=== PATIENT | female | born 1950 | race Caucasian/White ===

== ENCOUNTER 2023-04-29 10:10 | Emergency (ER) | payer MEDICARE ==
[~2023-04-29] VITALS: Ht 157.5 cm; Wt 56.7 kg
[2023-04-29 10:15] VITALS: BP_SYST 128; PULSE 86; RESP 18; TEMP 98.2; O2SAT 92
[2023-04-29 11:17] LABS: BASOPHILS % (AUTO) 0.2 % (0.0-2.0); HEMATOCRIT 38.7 % (36-48); HEMOGLOBIN 12.6 g/dL (12.0-16.0); LYMPHOCYTES # (AUTO) 1.4 K/uL (1.0-5.5); LYMPHOCYTES % (AUTO) 20.8 % (20.5-51.5); MEAN CORPUSCULAR HEMOGLOBIN 30 pg (27-31); MEAN CORPUSCULAR HGB CONC 33 % (32-36); MEAN CORPUSCULAR VOLUME 93 fL (79.0-98.0); MONOCYTES # (AUTO) 0.6 K/uL (0.0-1.0); MONOCYTES % (AUTO) 9.4 % (1.7-9.3); NEUTROPHILS # (AUTO) 4.5 K/uL (1.8-7.7); NEUTROPHILS % (AUTO) 69.6 % (40.0-70.0); PLATELET COUNT (AUTO) 141 K/uL (130-430); RED BLOOD CELL COUNT(AUTO) 4.18 MIL/uL (4.2-6.2); RED CELL DISTRIBUTION WIDTH 13.6 % (9.0-15.0); WHITE BLOOD COUNT (AUTO) 6.5 K/uL (4.8-10.8)
[2023-04-29 11:25] LABS: ANION GAP 11 (5-15); CALCIUM 8.5 mg/dL (8.4-11.0); CARBON DIOXIDE 25 mmol/L (23-29); CHLORIDE 106 mmol/L (98-107); CREATININE 0.53 mg/dL (0.55-1.30); GLUCOSE 102 mg/dL (74-106); POTASSIUM 3.5 mmol/L (3.5-5.1); SODIUM SERUM 142 mmol/L (136-145); UREA NITROGEN, BLOOD 16 mg/dL (8-21)
[2023-04-29 11:26] LABS: INFLUENZA TYPE A negative (NEGATIVE); INFLUENZA TYPE B NEGATIVE (NEGATIVE)
[2023-04-29 11:30] LABS: ALBUMIN 3.3 g/dL (3.4-4.8); ASPARTATE AMINOTRANSFERASE 31 U/L (10-37); TOTAL BILIRUBIN 0.5 mg/dL (0.0-1.0); TOTAL PROTEIN, SERUM 6.8 g/dL (6.4-8.3)
[2023-04-29 11:37] LABS: ACETONE, SERUM NEGATIVE (NEGATIVE)
[2023-04-29] MEDS ORDERED: DEXAMETHASONE SOD PHOSPHATE 4 MG/ML VIAL IVP ONE (11:45)
[2023-04-29] MEDS ORDERED: ALBUTEROL SULFATE 0.083% 2.5 MG/3 ML VIAL.NEB INH ONE (11:45)
[2023-04-29] MEDS ORDERED: IPRATROPIUM BROM 0.5 MG/2.5 ML VIAL.NEB (ATROVENT) INH ONE (11:45)
[2023-04-29 11:47] LABS: ALANINE AMINOTRANSFERASE 23 U/L (12-78)
[2023-04-29] MEDS ORDERED: LEVE1000 PO (11:51)
[2023-04-29] MEDS ORDERED: LIP80 PO (11:51)
[2023-04-29] MEDS ORDERED: SERT-436 PO (11:51)
[2023-04-29] MEDS ORDERED: CHOL4PAC20 PO (11:51)
[2023-04-29] MEDS ORDERED: NEU300 PO (11:51)
[2023-04-29] MEDS ORDERED: TYC3 PO (11:54)
[2023-04-29 16:28] VITALS: BP_SYST 135; PULSE 74; RESP 18; TEMP 97.3; O2SAT 97
== END 2023-04-29 14:00 | disposition short-term general hospital (02) ==
LOC: SED 10:10
DX: U07.1 COVID-19 (principal); J40 Bronchitis, not specified as acute or chronic; R09.02 Hypoxemia; Z79.899 Other long term (current) drug therapy
CPT/HCPCS: 80053; 82009; 83880; 85025; 87040; 36415; 93005; 71045; 94640; 94760; 99285; 96374; 83605; 87804 ×2; 87426; J1100; J7613

== ENCOUNTER 2023-06-16 14:42 | Emergency (ER) | payer MEDICARE ==
[~2023-06-16] VITALS: Ht 165.1 cm; Wt 68.0 kg
[~2023-06-16 14:42] MED LIST: CHOL4PAC20 PO; LEVE1000 PO; LIP80 PO; NEU300 PO; SERT-436 PO; TYC3 PO
[2023-06-16 14:50] VITALS: BP_SYST 106; PULSE 97; RESP 19; TEMP 97.6; O2SAT 96
[2023-06-16] MEDS ORDERED: LEVE1000 PO (15:08)
[2023-06-16] MEDS ORDERED: ATOR-1 PO (15:08)
[2023-06-16] MEDS ORDERED: GABA600T PO (15:08)
[2023-06-16] MEDS ORDERED: SERT-131 PO (15:08)
[2023-06-16] MEDS ORDERED: CHOL4PAC20 PO (15:08)
[2023-06-16] MEDS ORDERED: ACET1TAB93 PO (15:08)
[2023-06-16 15:17] LABS: BASOPHILS % (AUTO) 0.1 % (0.0-2.0); EOSINOPHILS # (AUTO) 0.1 K/uL (0.0-0.4); EOSINOPHILS % (AUTO) 0.9 % (0.0-4.0); HEMATOCRIT 41.7 % (36-48); HEMOGLOBIN 13.5 g/dL (12.0-16.0); LYMPHOCYTES # (AUTO) 1.1 K/uL (1.0-5.5); LYMPHOCYTES % (AUTO) 6.7 % (20.5-51.5); MEAN CORPUSCULAR HEMOGLOBIN 30 pg (27-31); MEAN CORPUSCULAR HGB CONC 32 % (32-36); MEAN CORPUSCULAR VOLUME 92 fL (79.0-98.0); MONOCYTES # (AUTO) 0.9 K/uL (0.0-1.0); MONOCYTES % (AUTO) 5.9 % (1.7-9.3); NEUTROPHILS # (AUTO) 13.7 K/uL (1.8-7.7); NEUTROPHILS % (AUTO) 86.4 % (40.0-70.0); PLATELET COUNT (AUTO) 221 K/uL (130-430); RED BLOOD CELL COUNT(AUTO) 4.53 MIL/uL (4.2-6.2); RED CELL DISTRIBUTION WIDTH 13.1 % (9.0-15.0); WHITE BLOOD COUNT (AUTO) 15.9 K/uL (4.8-10.8)
[2023-06-16 15:45] LABS: ALANINE AMINOTRANSFERASE 41 U/L (12-78); ALBUMIN 3.5 g/dL (3.4-4.8); ANION GAP 11 (5-15); ASPARTATE AMINOTRANSFERASE 36 U/L (10-37); CALCIUM 8.2 mg/dL (8.4-11.0); CARBON DIOXIDE 22 mmol/L (23-29); CHLORIDE 105 mmol/L (98-107); CREATININE 0.63 mg/dL (0.55-1.30); GLUCOSE 112 mg/dL (74-106); POTASSIUM 3.9 mmol/L (3.5-5.1); SODIUM SERUM 138 mmol/L (136-145); TOTAL BILIRUBIN 0.4 mg/dL (0.0-1.0); TOTAL PROTEIN, SERUM 6.9 g/dL (6.4-8.3); UREA NITROGEN, BLOOD 15 mg/dL (8-21)
[2023-06-16 16:24] LABS: AMYLASE 43 U/L (0-100); LIPASE 85 U/L (73-393)
[2023-06-16 16:32] LABS: ACETONE, SERUM NEGATIVE (NEGATIVE)
[2023-06-16] MEDS ORDERED: metroNIDAZOLE 500 MG TABLET PO ONE ×2 (17:15→17:30)
[2023-06-16] MEDS ORDERED: VANCOMYCIN HCL Non-Formulary 250 MG CAPSULE PO SCH (17:30)
[2023-06-16 18:43] LABS: BILIRUBIN,URINE NEGATIVE (NEGATIVE); BLOOD, URINE NEGATIVE (NEGATIVE); COLOR,URINE YELLOW (YELLOW); GLUCOSE,URINE NEGATIVE (NEGATIVE); KETONES,URINE NEGATIVE (NEGATIVE); LEUKOCYTE ESTERASE ,URINE NEGATIVE (NEGATIVE); NITRITE, URINE NEGATIVE (NEGATIVE); PH,URINE 5.5 (5.0-8.0); PROTEIN URINE NEGATIVE (NEGATIVE); UROBILINOGEN,URINE 0.2 (0.2-1.0)
[2023-06-16 18:53] LABS: CLARITY/URINE HAZY (CLEAR)
[2023-06-16 18:58] LABS: BACTERIA,URINE FEW /HPF (None Seen); CALCIUM OXALATE CRYSTALS,UR 0-10 /HPF (None Seen); FINE GRANULAR CASTS,URINE 0-10 /LPF (None Seen); MUCUS,URINE 2+ /LPF (None Seen); RBC,URINE 0-3 /HPF (0-3); WBC,URINE 0-3 /HPF (0-3)
[2023-06-16 19:38] VITALS: BP_SYST 118; PULSE 70; RESP 18; TEMP 97.7; O2SAT 98
== END 2023-06-16 19:38 | disposition short-term general hospital (02) ==
LOC: SED 14:42
DX: A04.72 Enterocolitis due to Clostridium difficile, not specified as recurrent (principal); R19.7 Diarrhea, unspecified; R10.84 Generalized abdominal pain; R11.10 Vomiting, unspecified; Z79.899 Other long term (current) drug therapy
CPT/HCPCS: 36415; 71045; 76376; 80053; 81000; 82009; 82150; 83605; 83690; 84484; 85025; 93005; 99285